=== PATIENT | female | born 1995 | race Caucasian/White ===

== ENCOUNTER → 2023-12-08 16:15 | Outpatient (REF) | payer OTHER, SELFPAY ==
[2023-12-08 14:58] LABS: % Basophils 0.5 % (0-2); % Immature Granulocytes 0.5 % (0-0.5); % Lymphocytes 32.4 % (20.5-51.1); % Monocytes 6.2 % (1.7-9.3); % Neutrophils 56.4 % (42.2-75.2); Absolute Eosinophils 0.3 10^3/uL (0-0.7); Absolute Lymphocytes 2.1 10^3/uL (1.2-3.4); Absolute Monocytes 0.4 10^3/uL (0.1-0.6); Absolute Neutrophils 3.7 10^3/uL (1.4-6.5); Hematocrit 37.4 % (37.0-47.0); Hemoglobin 12.2 g/dL (12.0-16.0); Mean Corp Hgb Conc. 32.6 g/dL (33.0-37.0); Mean Corpuscular Hgb 28.2 pg (27.0-31.0); Mean Corpuscular Volume 86.4 fL (81.0-99.0); Platelet Count 251 10^3/uL (130-400); Red Blood Cell Count 4.33 10^6/uL (4.20-5.40); Red Cell Dist. Width 14.2 % (11.5-14.5); White Blood Cell Count 6.5 10^3/uL (4.8-10.8)
== END ==
LOC: OIDL 16:15
PROVIDERS: ATTENDING PHYSICIAN Internal Medicine Hematology & Oncology
DX: D68.00 Von Willebrand disease, unspecified (principal)
CPT/HCPCS: 85025

== ENCOUNTER → 2024-04-26 16:45 | Outpatient (REF) | payer OTHER, SELFPAY | LOC: RAD 16:45 | PROVIDERS: ATTENDING PHYSICIAN Internal Medicine Critical Care Medicine; FAMILY PHYSICIAN Physician Assistant Medical | DX: R05.3 Chronic cough (principal) | CPT/HCPCS: 71046 ==

== ENCOUNTER → 2024-09-08 09:13 | Outpatient (REF) | payer OTHER, SELFPAY | LOC: WDC 09:13 | PROVIDERS: ATTENDING PHYSICIAN Obstetrics & Gynecology Gynecology; FAMILY PHYSICIAN Physician Assistant Medical | DX: N63.20 Unspecified lump in the left breast, unspecified quadrant (principal); N63.22 Unspecified lump in the left breast, upper inner quadrant | CPT/HCPCS: 76642; 77062; 77066 ==